=== PATIENT | male | born 1995 | race Caucasian/White ===

== ENCOUNTER 2017-06-26 10:45 | Emergency (ER) | payer MEDICAID | END 2017-06-26 11:31 | disposition home or self-care (01) | LOC: FTE 10:45 → E/R 11:31 | DX: H66.001 Acute suppurative otitis media without spontaneous rupture of ear drum, right ear (principal); H60.501 Unspecified acute noninfective otitis externa, right ear | CPT/HCPCS: 99283 ==

== ENCOUNTER 2017-09-16 21:26 | Emergency (ER) | payer SELFPAY, MEDICAID | END 2017-09-17 02:36 | disposition left against medical advice (07) | LOC: FTE 21:26 | DX: Z53.21 Procedure and treatment not carried out due to patient leaving prior to being seen by health care provider (principal) ==

== ENCOUNTER 2017-12-30 21:42 | Emergency (ER) | payer MEDICAID | END 2017-12-30 22:58 | disposition home or self-care (01) | LOC: FTE 21:42 | DX: S61.451A Open bite of right hand, initial encounter (principal); S61.452A Open bite of left hand, initial encounter; W55.01XA Bitten by cat, initial encounter; Y92.9 Unspecified place or not applicable | CPT/HCPCS: 99283 ==